=== PATIENT | male | born 1930 | race Caucasian/White ===

== ENCOUNTER 2016-04-29 19:04 | Inpatient (IN) | payer MEDICARE, BC ==
[~2016-04-29] VITALS: Ht 172.7 cm; Wt 96.7 kg
[2016-04-29 19:27] LABS: HEMOGLOBIN 15.4 g/dL (13.7-18.0)
[2016-04-29 19:43] LABS: IS PT STATUS REG ER OR PRE ER? YES
[2016-04-29] MEDS ORDERED: OMNIPAQUE 350 MG/ML, 100ML BOTTLE ONE (20:27)
[2016-04-29] MEDS ORDERED: MESA1.2T PO (20:32)
[2016-04-29] MEDS ORDERED: GLIP5TAB10 PO (20:33)
[2016-04-29] MEDS ORDERED: LIRA0.6P INJ (20:41)
[2016-04-29] MEDS ORDERED: FENO48TA5 PO (20:41)
[2016-04-29] MEDS ORDERED: AMLO5TAB2 PO (20:41)
[2016-04-29] MEDS ORDERED: ROSU10TA PO (20:41)
[2016-04-29] MEDS ORDERED: SODIUM CHLORIDE 0.9% 1,000 ML IV ONE (21:04)
[2016-04-29] MEDS ORDERED: ACETAMINOPHEN 325 MG TABLET PO PRN (21:30)
[2016-04-29] MEDS ORDERED: POLYETHYLENE GLYCOL 17 GM PACKET PO PRN (21:30)
[2016-04-29] MEDS ORDERED: ONDANSETRON 2MG/ML, 2ML IVPush PRN (21:30)
[2016-04-29] MEDS ORDERED: MORPHINE SULFATE 4 MG/ML, 1ML IVPush PRN (21:30)
[2016-04-29] MEDS ORDERED: BISACODYL 10 MG SUPP PR PRN (21:30)
[2016-04-29] MEDS ORDERED: BACITRACIN ZINC OINT 500U/GM, 0.9 GM ONE (21:59)
[2016-04-29 22:58] LABS: IS PT STATUS REG ER OR PRE ER? NO
[2016-04-29 22:59] VITALS: BP 158/86
[2016-04-29 23:00] VITALS: BP 156/86
[2016-04-30] MEDS: SODIUM CHLORIDE 0.9% 1,000 ML IV SCH ×2 (00:11→18:30)
[2016-04-30] MEDS ORDERED: SODIUM PHOSPHATE 20 MMOL in SODIUM CHLORIDE 0.9% 500 ML IV ONE (02:00)
[2016-04-30 02:40] VITALS: BP 141/94
[2016-04-30 04:00] LABS: HEMOGLOBIN 15.2 g/dL (13.7-18.0)
[2016-04-30 04:27] LABS: ASPARTATE AMINO TRANSFERASE 34 U/L (15-37); BLOOD UREA NITROGEN 25 mg/dL (7-18)
[2016-04-30 04:30] LABS: IS PT STATUS REG ER OR PRE ER? NO
[2016-04-30] MEDS: ASPIRIN 325 MG TABLET EC PO SCH (05:54)
[2016-04-30 06:45] VITALS: BP 154/96
[2016-04-30] MEDS: FENOFIBRATE 54 MG TABLET PO SCH (09:04)
[2016-04-30] MEDS: INSULIN REGULAR 100 UNITS/ML, 3ML VIAL SQ-INSULIN SCH ×4 (09:35→22:14)
[2016-04-30 10:36] LABS: IS PT STATUS REG ER OR PRE ER? NO
[2016-04-30] MEDS: HEPARIN 25,000 UNITS/500ML PMX 500 ML IV PRN (12:53)
[2016-04-30] MEDS ORDERED: HEPARIN 5,000 UNITS/ML, 1ML IV PRN (13:00)
[2016-04-30] MEDS ORDERED: HEPARIN 5,000 UNITS/ML, 1ML IV ONE (13:00)
[2016-04-30 14:30] VITALS: BP 150/90
[2016-04-30 20:45] VITALS: BP 147/82
[2016-04-30] MEDS: ATORVASTATIN 20 MG TABLET PO SCH (22:14)
[2016-05-01 03:15] VITALS: BP 149/79
[2016-05-01 04:27] LABS: BLOOD UREA NITROGEN 18 mg/dL (7-18)
[2016-05-01 04:34] LABS: IS PT STATUS REG ER OR PRE ER? NO
[2016-05-01] MEDS: ASPIRIN 325 MG TABLET EC PO SCH (05:22)
[2016-05-01 07:28] VITALS: BP 146/78
[2016-05-01] MEDS: FENOFIBRATE 54 MG TABLET PO SCH (08:47)
[2016-05-01] MEDS: INSULIN REGULAR 100 UNITS/ML, 3ML VIAL SQ-INSULIN SCH ×4 (08:47→20:16)
[2016-05-01] MEDS ORDERED: INSU100V8 SQ (12:34)
[2016-05-01 12:51] VITALS: BP 161/76
[2016-05-01] MEDS: HEPARIN 25,000 UNITS/500ML PMX 500 ML IV PRN (14:42)
[2016-05-01 17:54] VITALS: BP 149/87
[2016-05-01] MEDS: CARVEDILOL 3.125 MG TABLET PO SCH (17:55)
[2016-05-01 19:36] VITALS: BP 151/89
[2016-05-01] MEDS: ATORVASTATIN 20 MG TABLET PO SCH (20:16)
[2016-05-02 01:55] VITALS: BP 144/74
[2016-05-02 06:13] LABS: BLOOD UREA NITROGEN 20 mg/dL (7-18)
[2016-05-02] MEDS: INSULIN REGULAR 100 UNITS/ML, 3ML VIAL SQ-INSULIN SCH ×4 (07:00→20:42)
[2016-05-02 07:01] VITALS: BP 158/77
[2016-05-02] MEDS: CARVEDILOL 3.125 MG TABLET PO SCH (09:25)
[2016-05-02] MEDS: ASPIRIN 325 MG TABLET EC PO SCH (09:25)
[2016-05-02] MEDS: FENOFIBRATE 54 MG TABLET PO SCH (09:25)
[2016-05-02] MEDS: LISINOPRIL 5 MG TABLET PO SCH (09:25)
[2016-05-02] MEDS: HEPARIN 25,000 UNITS/500ML PMX 500 ML IV PRN (09:31)
[2016-05-02 13:20] VITALS: BP 134/70
[2016-05-02 16:58] VITALS: BP 147/82
[2016-05-02] MEDS: CARVEDILOL 6.25 MG TABLET PO SCH (17:02)
[2016-05-02] MEDS: DOCUSATE 100 MG CAPSULE PO PRN (20:38)
[2016-05-02] MEDS: ATORVASTATIN 20 MG TABLET PO SCH (20:38)
[2016-05-02 21:28] VITALS: BP 135/88
[2016-05-03 02:34] VITALS: BP 157/74
[2016-05-03] MEDS: HEPARIN 25,000 UNITS/500ML PMX 500 ML IV PRN (04:35)
[2016-05-03 05:40] LABS: BLOOD UREA NITROGEN 21 mg/dL (7-18)
[2016-05-03] MEDS: ASPIRIN 325 MG TABLET EC PO SCH (06:04)
[2016-05-03] MEDS: CARVEDILOL 6.25 MG TABLET PO SCH ×2 (06:04→17:50)
[2016-05-03] MEDS: INSULIN REGULAR 100 UNITS/ML, 3ML VIAL SQ-INSULIN SCH ×4 (07:00→21:08)
[2016-05-03 07:04] VITALS: BP 143/87
[2016-05-03] MEDS ORDERED: REGADENOSON 0.4 MG/5 ML SYRINGE ONE (08:27)
[2016-05-03] MEDS: FENOFIBRATE 54 MG TABLET PO SCH (08:34)
[2016-05-03] MEDS: LISINOPRIL 5 MG TABLET PO SCH (08:34)
[2016-05-03] MEDS: DOCUSATE 100 MG CAPSULE PO PRN (11:41)
[2016-05-03] MEDS ORDERED: SODIUM CHLORIDE 0.9% 1,000 ML IV ONE (12:11)
[2016-05-03] MEDS ORDERED: FENTANYL PF 100 MCG/2ML ONE (14:42)
[2016-05-03] MEDS ORDERED: BIVALIRUDIN 250 MG ONE (14:43)
[2016-05-03] MEDS ORDERED: MIDAZOLAM 1 MG/ML, 5ML ONE (14:43)
[2016-05-03] MEDS ORDERED: LIDOCAINE 2%, 20ML ONE (14:43)
[2016-05-03] MEDS ORDERED: TICAGRELOR 90 MG TABLET ONE (14:43)
[2016-05-03 15:45] VITALS: BP 110/64
[2016-05-03 17:45] VITALS: BP 130/78
[2016-05-03 19:49] VITALS: BP 130/78
[2016-05-03] MEDS: ATORVASTATIN 20 MG TABLET PO SCH (21:08)
[2016-05-03 23:48] LABS: IS PT STATUS REG ER OR PRE ER? NO
[2016-05-04 03:21] VITALS: BP 124/74
[2016-05-04] MEDS: ASPIRIN 325 MG TABLET EC PO SCH (06:28)
[2016-05-04] MEDS: CARVEDILOL 6.25 MG TABLET PO SCH ×2 (06:29→18:19)
[2016-05-04 06:36] VITALS: BP 145/87
[2016-05-04] MEDS: INSULIN REGULAR 100 UNITS/ML, 3ML VIAL SQ-INSULIN SCH ×4 (07:00→22:17)
[2016-05-04] MEDS: FENOFIBRATE 54 MG TABLET PO SCH (09:39)
[2016-05-04] MEDS: APIXABAN 5 MG TABLET PO SCH ×2 (09:39→22:16)
[2016-05-04] MEDS: LISINOPRIL 10 MG TABLET PO SCH (09:40)
[2016-05-04 14:03] VITALS: BP 134/75
[2016-05-04 14:06] LABS: BLOOD UREA NITROGEN 24 mg/dL (7-18)
[2016-05-04 18:47] VITALS: BP 134/77
[2016-05-04] MEDS: ATORVASTATIN 20 MG TABLET PO SCH (22:16)
[2016-05-05 01:54] VITALS: BP 128/68
[2016-05-05 04:58] LABS: HEMOGLOBIN 13.8 g/dL (13.7-18.0)
[2016-05-05 05:02] LABS: BLOOD UREA NITROGEN 25 mg/dL (7-18)
[2016-05-05 06:40] VITALS: BP 136/80
[2016-05-05] MEDS: CARVEDILOL 6.25 MG TABLET PO SCH (06:43)
[2016-05-05] MEDS ORDERED: LISI-167 PO (06:58)
[2016-05-05] MEDS ORDERED: APIX5TAB PO (06:58)
[2016-05-05] MEDS ORDERED: ATOR20TA9 PO (06:58)
[2016-05-05] MEDS ORDERED: CARV6.2512 PO (06:58)
[2016-05-05] MEDS: INSULIN REGULAR 100 UNITS/ML, 3ML VIAL SQ-INSULIN SCH ×3 (07:00→16:00)
[2016-05-05] MEDS: APIXABAN 5 MG TABLET PO SCH (09:41)
[2016-05-05] MEDS: FENOFIBRATE 54 MG TABLET PO SCH (09:41)
[2016-05-05] MEDS: LISINOPRIL 10 MG TABLET PO SCH (09:41)
[2016-05-05 13:34] VITALS: BP 145/76
== END 2016-05-05 18:05 | disposition home health service (06) | DRG 64 ==
LOC: ED 19:31 → EDIP 22:28 → 5SO 22:53
PROC: 4A023N7 Measurement of Cardiac Sampling and Pressure, Left Heart, Percutaneous Approach (ICD-10-PCS; principal; 2016-05-03)
PROC: B2121ZZ Fluoroscopy of Single Coronary Artery Bypass Graft using Low Osmolar Contrast (ICD-10-PCS; 2016-05-03)
PROC: B2181ZZ Fluoroscopy of Left Internal Mammary Bypass Graft using Low Osmolar Contrast (ICD-10-PCS; 2016-05-03)
PROC: B2151ZZ Fluoroscopy of Left Heart using Low Osmolar Contrast (ICD-10-PCS; 2016-05-03)
PROC: B2111ZZ Fluoroscopy of Multiple Coronary Arteries using Low Osmolar Contrast (ICD-10-PCS; 2016-05-03)
DX: I63.412 Cerebral infarction due to embolism of left middle cerebral artery (principal); I21.4 Non-ST elevation (NSTEMI) myocardial infarction; I50.41 Acute combined systolic (congestive) and diastolic (congestive) heart failure; D68.69 Other thrombophilia; I42.9 Cardiomyopathy, unspecified; I48.91 Unspecified atrial fibrillation; R47.01 Aphasia; E78.5 Hyperlipidemia, unspecified; N28.9 Disorder of kidney and ureter, unspecified; E11.9 Type 2 diabetes mellitus without complications; I25.10 Atherosclerotic heart disease of native coronary artery without angina pectoris; R29.810 Facial weakness; I11.0 Hypertensive heart disease with heart failure; R29.708 NIHSS score 8; Z66 Do not resuscitate; Z79.01 Long term (current) use of anticoagulants; Z79.4 Long term (current) use of insulin; Z82.49 Family history of ischemic heart disease and other diseases of the circulatory system; Z85.46 Personal history of malignant neoplasm of prostate; Z85.828 Personal history of other malignant neoplasm of skin; Z86.73 Personal history of transient ischemic attack (TIA), and cerebral infarction without residual deficits; Z87.891 Personal history of nicotine dependence; Z95.1 Presence of aortocoronary bypass graft; Z90.79 Acquired absence of other genital organ(s); V49.88XA Car occupant (driver) (passenger) injured in other specified transport accidents, initial encounter; Y92.413 State road as the place of occurrence of the external cause; Y93.89 Activity, other specified
CPT/HCPCS: 36415; 70450; 70496; 70498; 70551; 71010; 74177; 78452; 80047; 80048; 80053; 80061; 81001; 82607; 82962; 83090; 83735; 83880; 84100; 84443; 84484; 85025; 85520; 85610; 85730; 93005; 93017; 93306; 93459; 99291; C1760; C1894; J0583; J1644; J1815; J2250; J2785; J3010; J3490; Q9967; 92523-GN; A9502; C9898; J7030; J7040